=== PATIENT | male | born 1995 | race Asian ===

== ENCOUNTER 2016-11-15 09:41 | Emergency (ER) | payer OTHER ==
[2016-11-15 12:39] VITALS: BP 148/89
== END 2016-11-15 12:39 | disposition home or self-care (01) ==
LOC: ED 09:41
DX: L05.01 Pilonidal cyst with abscess (principal)
CPT/HCPCS: J2001

== ENCOUNTER 2016-11-17 17:58 | Emergency (ER) | payer OTHER ==
[2016-11-17 19:40] VITALS: BP 136/82
== END 2016-11-17 19:40 | disposition home or self-care (01) ==
LOC: ED 17:58
DX: L05.01 Pilonidal cyst with abscess (principal)
CPT/HCPCS: J1885; J2001

== ENCOUNTER 2016-11-19 17:39 | Emergency (ER) | payer OTHER ==
[~2016-11-19] VITALS: Ht 167.6 cm; Wt 104.8 kg
[2016-11-19 21:28] VITALS: BP 135/88
== END 2016-11-19 21:00 | disposition home or self-care (01) ==
LOC: ED 17:39
DX: L05.01 Pilonidal cyst with abscess (principal)
CPT/HCPCS: J2001

== ENCOUNTER 2016-11-21 14:01 | Emergency (ER) | payer OTHER ==
[2016-11-21 14:30] VITALS: BP 145/78
== END 2016-11-21 17:43 | disposition home or self-care (01) ==
LOC: ED 14:01
DX: Z48.01 Encounter for change or removal of surgical wound dressing (principal)

== ENCOUNTER 2017-05-29 16:10 | Emergency (ER) | payer OTHER | END 2017-05-29 17:04 | disposition left against medical advice (07) | LOC: ED 16:10 | DX: Z53.21 Procedure and treatment not carried out due to patient leaving prior to being seen by health care provider (principal) ==

== ENCOUNTER 2018-07-21 12:21 | Emergency (ER) | payer OTHER ==
[~2018-07-21] VITALS: Ht 170.2 cm; Wt 107.5 kg
[2018-07-21 12:29] VITALS: Ht 170.2 cm; Wt 107.5 kg
[2018-07-21 15:22] VITALS: BP 136/87
== END 2018-07-21 15:22 | disposition home or self-care (01) ==
LOC: ED 12:21
DX: J20.8 Acute bronchitis due to other specified organisms (principal); J45.901 Unspecified asthma with (acute) exacerbation
CPT/HCPCS: J7512

== ENCOUNTER 2019-02-08 19:36 | Emergency (ER) | payer OTHER ==
[~2019-02-08] VITALS: Ht 167.6 cm; Wt 108.9 kg
[2019-02-08 19:41] VITALS: Ht 167.6 cm; Wt 108.9 kg
[2019-02-08 21:52] LABS: CALCIUM 8.8 mg/dL (8.5-10.1); CARBON DIOXIDE 25.9 mmol/L (21-32); CHLORIDE SERUM 99 mmol/L (98-107); CREATININE SERUM 0.9 mg/dL (0.7-1.3); GFR1 > 60 mL/min; GLUCOSE SERUM 106 mg/dL (74-106); POTASSIUM SERUM 3.7 mmol/L (3.5-5.1); SODIUM SERUM 135 mmol/L (136-145)
[2019-02-08 21:56] LABS: BASOPHIL % 0 % (0-2); PLATELET COUNT 277 x10^3mcL (130-400); RED CELL DISTRIBUTION WIDTH 12.9 % (11.5-14.5)
[2019-02-08 21:57] LABS: ALBUMIN 3.7 g/dL (3.4-5.0); ALKALINE PHOSPHATASE 68 U/L (46-116); ALT/SGPT 152 U/L (16-63); AST/SGOT 34 U/L (15-37); BILIRUBIN TOTAL 0.8 mg/dL (0.20-1.00)
[2019-02-08 22:06] LABS: TOTAL PROTEIN, SERUM 8.6 g/dL (6.4-8.2)
[2019-02-09 00:06] VITALS: BP 109/62
[2019-02-11 05:07] LABS: RAPID PLASMA REAGIN Non Reactive (Non Reactive)
== END 2019-02-09 00:06 | disposition home or self-care (01) ==
LOC: ED 19:36
PROVIDERS: Emergency Medicine
DX: B08.4 Enteroviral vesicular stomatitis with exanthem (principal); B34.9 Viral infection, unspecified
CPT/HCPCS: 87804; J0561; J1200; J1885; J2405; J2930; J3010; J7030; Q0092

== ENCOUNTER 2019-02-12 18:56 | Emergency (ER) | payer OTHER ==
[~2019-02-12] VITALS: Ht 167.6 cm; Wt 103.4 kg
[2019-02-12 19:00] VITALS: Ht 167.6 cm; Wt 103.4 kg
[2019-02-12 20:31] VITALS: BP 165/88
== END 2019-02-12 20:31 | disposition home or self-care (01) ==
LOC: ED 18:56
DX: N45.2 Orchitis (principal); B08.4 Enteroviral vesicular stomatitis with exanthem; J45.909 Unspecified asthma, uncomplicated; Z98.890 Other specified postprocedural states
CPT/HCPCS: Q0092